=== PATIENT | female | born 1980 | race Caucasian/White ===

== ENCOUNTER 2017-12-03 09:57 | Inpatient (IN) ==
[2017-12-03] MEDS ORDERED: Famotidine 20 MG/2 ML VIAL IVP ONE (10:26)
[2017-12-03] MEDS ORDERED: Metoclopramide 10 MG/2 ML VIAL IVP ONE (10:26)
[2017-12-03] MEDS ORDERED: CeFAZolin Premix DUPLEX 2,000 MG/50 ML BAG IVPB ONE (10:26)
[2017-12-03] MEDS ORDERED: Oxytocin 20 units/ LR 1000 mL 20 UNIT/1,000 ML BAG IVC ONE ×2 (10:26→15:31)
[2017-12-03] MEDS ORDERED: Ringers Solution, Lactated 1,000 ML IVC SCH (10:30)
--- NOTE | 2017-12-03 10:43 | Anesthesia Evaluation PreOp ---
Date of Encounter: 12/03/17 Time of Encounter: 10:38 - Past History Planned Operation: csection Cardiac History: Denies any Significant Hx Pulmonary History: Snore RISK AND INSURANCE CONSULTANT History: Denies Any Significant HX Other Medical History: GERD Anesthesia History: No Prior Anesthetic Complications, Past Anesthesia (wrist fracture) : Yes (, 38 weeks. 20 week ultrasound-placenta previa) Alcohol Use: occasionally Drug use: none Medications and Allergies Hydrocodone/Acetaminophen [[place] 5-325 Tablet] 1 each PO 3-4XD PRN #8 tablet [Rx] Naproxen [Naprosyn] 500 mg PO BID PRN #30 tablet 01/25/16 [Rx] 3 Allergy/AdvReac Type Severity Reaction Status Date / Time No Known Allergies Allergy Verified 01/25/16 19:59 - Meds/Allergy Pre-op Review Medications Reviewed: Yes Allergies Reviewed: Yes Beta Blockers on Current Med List: No Anesthesia Exam O2 Sat Height 1.57 m Weight 99 kg bp 128/72 rr 82 [id number] Height: 62 Weight: 99 NPO (# of Hours): greater than 8 hours - HEENT Pupil (Motor): Pupils equal Mallampati: II Teeth: Normal Oral Opening: Greater than 3 - RISK AND INSURANCE CONSULTANT LOC: Oriented RISK AND INSURANCE CONSULTANT Motor: Normal RUE, Normal LUE, Normal RLE, Normal LLE, Normal Face RISK AND INSURANCE CONSULTANT Sensory: Normal: RUE - Cardiac Rhythm: Regular Murmur: None JVD: No Carotid Bruit: No - Pulmonary Breath Sounds: bilateral Clear Respiratory Effort: Symmetrical Anesthesia Assess/Plan ASA Score: 2 Modified Stanton Scale for Level of Consciousness: Cooperative, oriented, and tranquil Anesthetic Plan: Regional Monitoring Plan: Standard Monitors Recovery Plan: PACU
[2017-12-03] MEDS ORDERED: Morphine Sulfate/PF 5mg/10mL Vial ONE (11:11)
[2017-12-03] MEDS ORDERED: *HR* Phenylephrine 10 MG/ML VIAL ONE (11:11)
[2017-12-03] MEDS ORDERED: *HR* Oxytocin 10 UNIT/ML VIAL IM ONE (11:14)
[2017-12-03 11:23] LABS: Basophils % 0.2 %; Eosinophils % 0.2 %; Hematocrit 34.6 % (35.3-44.9); Hemoglobin 11.3 g/dL (11.5-15.4); Immature Granulocytes % 0.2 % (0-4); Lymphocytes # 1.7 K/mcL (0.6-4.6); Lymphocytes % 20.1 %; Mean Corpuscular HGB Conc 32.7 g/dL (31.6-35.5); Mean Corpuscular Hemoglobin 28.5 pg (28.0-33.3); Mean Corpuscular Volume 87.2 fL (83.0-100.0); Mean Platelet Volume 13.3 fL (9.4-12.4); Monocytes # 0.6 K/mcL (0.0-1.3); Monocytes % 6.9 %; Neutrophils # 6.3 K/mcL (1.6-8.9); Platelet Count 176 K/mcL (140-400); Red Blood Count 3.97 M/mcL (3.82-4.97); Red Cell Distribution Width 14.1 % (11.5-14.5); Segmented Neutrophils % 72.4 %
[2017-12-03 11:50] LABS: Amphetamine Screen,Urine Negative ng/mL (Cutoff=1000); Barbiturate Screen,Urine Negative ng/mL (Cutoff=200); Benzodiazepines Screen,Urine Negative ng/mL (Cutoff=200); Cannabinoid Screen,Urine Negative ng/mL (Cutoff = 50); Cocaine Screen,Urine Negative ng/mL (Cutoff= 300); Opiate Screen,Urine Negative ng/mL (Cutoff=300); Phencyclidine Screen,Urine Negative ng/mL (Cutoff=25)
--- NOTE | 2017-12-03 11:59 | OB/GYN History & Physical ---
Date of Encounter: 12/03/17 Time of Encounter: 11:51 Assessment and Plan (1) 38 weeks gestation of Current visit: Yes Status: Acute (2) Placenta previa antepartum in third trimester Current visit: Yes Status: Acute Admit to L&D for PLTCS Labs - CBC Dr. Jim to perform surgery (3) Polyhydramnios affecting in third trimester Current visit: Yes Status: Acute History of Present Illness Chief complaint: PLTCS HPI: Ms. Hanson is a 37 year old female with an estimated date of of 38 weeks 0 days gestation dated by early ultrasound. She presents for scheduled primary low transverse for placenta previa. She denies contractions, leakage of fluid, vaginal bleeding and reports positive movement. Her course has been complicated by placenta previa and polyhydramnios. She desires future fertility. Labs: A+ GBS- Quad screen negative HIV negative Hep B- RPR nonreactive Rubella nonimmune-Will need MMR Varicella immune GC/chlamydia negative Past Med Surg Social Fam HX - Past Medical History Medical history: no medical history Psychiatric history: no psych history - Past Surgical History Surgical History: no surgical history - Social History Smoking Status: Never smoker Smokeless Tobacco Status: No Alcohol use: occasionally Drug use: none - Family History Mother Hx Family Medical Disorders: Yes (hypertension) Obstetrical History - Pregnancies : 1 Para: 0 Term: 0 : 0 Ab's: 0 Livin Medications and Allergies Omeprazole 1 / PO DAILY 12/03/17 [History] Pnv Plus Multivit Tab 1 / PO DAILY 12/03/17 [History] 3 Allergy/AdvReac Type Severity Reaction Status Date / Time No Known Allergies Allergy Verified 01/25/16 19:59 Review of System OB All systems PM: reviewed and no additional remarkable complaints except as stated Exam - Constitutional Constitutional: well developed, well nourished, no acute distress, average body habitus - HEENT HEENT: Normocephaly, Mucus Membranes Moist - Neck Neck exam: full ROM - Lungs Respiratory exam: CTAB - Cardiovascular Cardiovascular exam: RRR, +S1, +S2 - Breasts Breast: bilateral: normal - Abdomen Abdomen: Present: bowel sounds normal - Extremities Extremities exam: full ROM, radial pulses palpable and symmetrical - Uterus Uterus exam: Present: normal size, normal contour Results Result Diagrams: 12/03/17 10:55 Abnormal lab results Hgb 11.3 g/dL (11.5-15.4) L 12/03/17 10:55 Hct 34.6 % (35.3-44.9) L 12/03/17 10:55 MPV 13.3 fL (9.4-12.4) H 12/03/17 10:55 All other labs normal.
[2017-12-03] MEDS ORDERED: *HR* OxyCODONE Immed Rel 5 MG TABLET PO PRN (12:40)
[2017-12-03] MEDS ORDERED: *HR* Promethazine 25 MG/ML VIAL IVP PRN (12:40)
[2017-12-03] MEDS ORDERED: Ketorolac 30 MG/ML VIAL IVP PRN (12:40)
[2017-12-03] MEDS ORDERED: Ondansetron 4 MG/2 ML VIAL IVP PRN ×2 (12:40→15:59)
[2017-12-03] MEDS ORDERED: *HR* Nalbuphine 20 MG/ML AMPUL IVP PRN (12:43)
--- NOTE | 2017-12-03 13:21 | OB/GYN Procedure Note ---
Section - Date of procedure: 12/03/17 Preop diagnosis: desires sterilization, other (low lying placenta) Post-op diagnosis: other (2 vessel cord) Procedure: primary low transverse, bilateral tubal ligation Surgeon: Fareed Jim Estimated blood loss (cc): 500 Was there an scheduling assistant present: Yes Application Software Developer: Katheryn Catherine Rackman: Matt Alejandro Anesthesia Type: Spinal section complications: none Disposition: L&D Recovery Room Specimens: Placenta, Right tube segment, Left tube segment - Infant (s) Infant A Infant Delivery Date: 12/03/17 Delivery Time: 12:31 Presentation: vertex Position: TERRY Route of delivery: other Gender: Female Viability: Viable Pounds: 7 Ounces: 0 Gram Weight: 3185 kg at 1 minute: 8 at 5 minutes: 9 Shoulder Dystocia: not encountered Placenta: complete extraction Cord: 2 umbilical vessels - Narrative Narrative: Patient was taken to the operating room and placed in supine position with left uterine displacement following the administration of spinal anesthetic. Skin was then prepped and draped in usual sterile fashion, and a timeout procedure was performed. A Pfannenstiel incision was performed and extended down to the fascial layer until the abdominal cavity was entered. A low transverse uterine incision was performed and extended bilaterally with bandage scissors. The membranes were then ruptured with clear fluid present. A viable female was delivered from a vertex presentation with scores of 8 and 9 at 1 and 5 minutes respectively and the infant weighed 7 pounds and 0 ounces. The cord was clamped and cut, and the was handed to the nursery team. A sample of cord blood was obtained and the placenta was manually removed. The uterine cavity was wiped clean with wet lap sponge. The uterine incision was closed in a layered fashion with 0 Vicryl suture in a running locking fashion. Good hemostasis was noted.The patient and her were then asked if they still wanted to proceed with a tubal sterilization and they agreed. The left fallopian tube was first identified grasped and traced distally until the fimbriated end was seen and a distal portion tube was doubly ligated with 0 plain suture to incorporate the fimbriated end and the specimen was removed. Good hemostasis was noted and the procedure was repeated in a similar fashion for the right fallopian tube. Again good hemostasis was present. The Paracolic gutters were then gently wiped clean with wet lap sponge. Inspection was then performed with good hemostasis still noted. The fascial layer was closed with 0 PDS Stratafix suture in a running nonlocking fashion. The subcutaneous layer was irrigated with sterile water and then closed with 4-0 Vicryl suture in a running nonlocking fashion, and continuing to close the skin in a running subcuticular fashion. A piece of Dermabond mesh was then applied over the incision site. Patient tolerated procedure well, all sponge needle and instrument counts reported as correct. Estimated blood loss was 500 mL. The urine in the Mike catheter was clear and yellow, and she was taken to recovery room in stable condition.
[2017-12-03] MEDS ORDERED: Measles/Mumps/Rubella Vacc 0.5 ML VIAL SQ ONE (15:59)
[2017-12-03] MEDS ORDERED: Metoclopramide 10 MG/2 ML VIAL IVP PRN (15:59)
[2017-12-03] MEDS ORDERED: Simethicone 80 MG TAB.CHEW PO PRN (15:59)
[2017-12-03] MEDS: *HR* OxyCODONE/APAP 5/325 TABLET PO PRN ×2 (16:20→22:19)
[2017-12-03] MEDS: Oxytocin 20 units/ LR 1000 mL 20 UNIT/1,000 ML BAG IVC SCH (22:38)
[2017-12-04] MEDS: Ibuprofen 600 MG TABLET PO PRN ×3 (04:20→20:50)
[2017-12-04] MEDS: *HR* OxyCODONE/APAP 5/325 TABLET PO PRN ×4 (04:20→20:50)
[2017-12-04 04:38] LABS: Basophils % 0.2 %; Eosinophils # 0.1 K/mcL (0.0-0.6); Eosinophils % 0.6 %; Hematocrit 32.9 % (35.3-44.9); Hemoglobin 10.6 g/dL (11.5-15.4); Immature Granulocytes % 0.6 % (0-4); Lymphocytes # 2.4 K/mcL (0.6-4.6); Lymphocytes % 22.7 %; Mean Corpuscular HGB Conc 32.2 g/dL (31.6-35.5); Mean Corpuscular Hemoglobin 28.1 pg (28.0-33.3); Mean Corpuscular Volume 87.3 fL (83.0-100.0); Mean Platelet Volume 12.8 fL (9.4-12.4); Monocytes # 0.7 K/mcL (0.0-1.3); Monocytes % 6.8 %; Neutrophils # 7.3 K/mcL (1.6-8.9); Platelet Count 156 K/mcL (140-400); Red Blood Count 3.77 M/mcL (3.82-4.97); Red Cell Distribution Width 14.2 % (11.5-14.5); Segmented Neutrophils % 69.1 %
[2017-12-04] MEDS: Oxytocin 20 units/ LR 1000 mL 20 UNIT/1,000 ML BAG IVC SCH (06:14)
[2017-12-04] MEDS: Prenatal Vit/FA 1 EACH TABLET PO SCH (07:48)
--- NOTE | 2017-12-04 09:03 | OB/GYN Progress Note ---
Date of Encounter: 12/04/17 Time of Encounter: 09:00 - Assessment and Plan (1) S/P primary low transverse Current Visit: Yes Status: Acute Patient is doing well status post primary C/S day# 1 Pain is well-controlled Patient is tolerating regular diet Denies flatus or bowel movement Voiding without difficulty Lochia light breast-feeding without difficulty Plan for discharged tomorrow (2) S/P tubal ligation Current Visit: Yes Status: Acute Subjective - Subjective Principal diagnosis: 2/2 placenta previa and polyhydramnios Patient reports: appetite normal, voiding normally, pain well controlled, ambulating normally : doing well Objective - Vital Signs Latest vital signs: Vital Signs Temp Pulse Resp BP Pulse Ox 12/04/17 07:30 98.1 F 83 16 104/63 12/04/17 03:47 98.1 F 88 16 98/63 97 12/04/17 00:00 98.7 F 91 16 98/63 95 12/03/17 20:15 98.4 F 85 16 100/66 95 12/03/17 17:30 97.7 F 82 16 111/52 96 12/03/17 16:44 97.5 F L 82 16 107/70 12/03/17 16:11 98.8 F 73 16 124/83 12/03/17 16:00 97.7 F 87 16 113/71 Intake and Output 12/03/17 12/04/17 12/04/17 23:59 07:59 15:59 Intake Total 360 / 360 1500 / 1500 Output Total 700 / 700 Balance 360 / 360 800 / 800 Intake: IV Fluids 1000 / 1000 Pitocin 20 unit In 1,000 ml @ 1000 / 1000 125 mls/hr IVC .Q8H [facility] Rx#: [id number] Oral 360 / 360 500 / 500 Output: Urine 600 / 600 Catheter 100 / 100 Urethral (Mike) 100 / 100 Other: Meal Dinner Weight 98.8 kg 101.3 kg Patient Weight 12/04/17 23:59 Weight 101.3 kg - Exam Lungs: bilateral: normal Chest: Normal S1, Normal S2 Extremities: Present: normal Abdomen: Present: normal appearance, soft, gravid Incision: Present: normal, dry Uterus: Present: normal, firm Comments: I examined this patient and my medical decision-making was reviewed with the Resident Physician. I agree with the documented findings, disposition and treatment plan as described except to the extent set forth below. EJ Hebert - Labs Labs: Laboratory Results - last 24 hr 12/03/17 12/03/17 12/04/17 10:55 10:55 04:20 WBC 8.7 10.5 RBC 3.97 3.77 L Hgb 11.3 L 10.6 L Hct 34.6 L 32.9 L MCV 87.2 87.3 MCH 28.5 28.1 MCHC 32.7 32.2 RDW 14.1 14.2 Plt Count 176 156 MPV 13.3 H 12.8 H Immature Gran % 0.2 0.6 Seg Neutrophils % 72.4 69.1 Lymphocytes % 20.1 22.7 Monocytes % 6.9 6.8 Eosinophils % 0.2 0.6 Basophils % 0.2 0.2 Neutrophils # 6.3 7.3 Lymphocytes # 1.7 2.4 Monocytes # 0.6 0.7 Eosinophils # 0.0 0.1 Basophils # 0.0 0.0 Urine Opiates Screen Negative Ur Barbiturates Screen Negative Ur Phencyclidine Scrn Negative Ur Amphetamines Screen Negative U Benzodiazepines Scrn Negative Urine Cocaine Screen Negative U Marijuana (THC) Screen Negative
[2017-12-05] MEDS: *HR* OxyCODONE/APAP 5/325 TABLET PO PRN ×2 (01:23→07:03)
[2017-12-05] MEDS: Ibuprofen 600 MG TABLET PO PRN ×2 (03:54→09:51)
[2017-12-05 08:14] VITALS: BP 120/80
--- NOTE | 2017-12-05 09:03 | Discharge Summary ---
Date of Encounter: 12/05/17 Time of Encounter: 09:00 - Discharge Diagnosis (1) S/P primary low transverse Priority: Primary Status: Acute (2) S/P tubal ligation Priority: Primary Status: Acute - Discharge Medications Home Medications: Omeprazole 1 / PO DAILY 12/03/17 [History] Pnv Plus Multivit Tab 1 / PO DAILY 12/03/17 [History] Allergies/Adverse Reactions: 3 Allergy/AdvReac Type Severity Reaction Status Date / Time No Known Allergies Allergy Verified 01/25/16 19:59 Data Procedures and tests throughout hospitalization: Laboratory Tests 12/03/17 12/03/17 12/04/17 10:55 10:55 04:20 WBC 8.7 10.5 RBC 3.97 3.77 L Hgb 11.3 L 10.6 L Hct 34.6 L 32.9 L MCV 87.2 87.3 MCH 28.5 28.1 MCHC 32.7 32.2 RDW 14.1 14.2 Plt Count 176 156 MPV 13.3 H 12.8 H Immature Gran % 0.2 0.6 Seg Neutrophils % 72.4 69.1 Lymphocytes % 20.1 22.7 Monocytes % 6.9 6.8 Eosinophils % 0.2 0.6 Basophils % 0.2 0.2 Neutrophils # 6.3 7.3 Lymphocytes # 1.7 2.4 Monocytes # 0.6 0.7 Eosinophils # 0.0 0.1 Basophils # 0.0 0.0 Urine Opiates Screen Negative Ur Barbiturates Screen Negative Ur Phencyclidine Scrn Negative Ur Amphetamines Screen Negative U Benzodiazepines Scrn Negative Urine Cocaine Screen Negative U Marijuana (THC) Screen Negative Date of admission: 12/03/17 09:57 Primary care physician: PCP NONE Discharging clinician: Pascual Hutchison Anticipated date of discharge: 12/05/17 - Patient Status Disposition: Home, Self-Care Condition: Good Functional capacity at discharge: independent ambulation Overall status at discharge: patient is progressing back to baseline - Discharge Instructions Follow Up With: NONE,PCP [Primary Care Provider] - - Diet and Activity Activity: resume usual activities as tolerated Diet: advance to your usual diet 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 Hanson is a 37F who presented for scheduled primary low transverse C- section for placenta previa. Her course had been complicated by placenta previa and polyhydramnios. She desires future fertility. Patient reports that her pain is well-controlled, lochia is light, tolerating regular diet and passing flatus and urine without difficulty, breast-feeding without difficulty. She reports that she is recovering well. Denies any headaches, vision changes, chest pain, turns red, abdominal pain, dysuria. Patient reports that she is ready go home today. Time Attestation: Total time spent providing and/or coordinating discharge services: Time Spent: Greater than 30 minutes Exam - Constitutional Vitals: Temp Pulse Resp BP Pulse Ox 98.2 F 85 20 120/80 96 12/05/17 08:12 12/05/17 08:12 12/05/17 08:12 12/05/17 08:12 12/05/17 08:12 General appearance IM: A&O X 3, no acute distress - Respiratory Respiratory exam: Absent: respiratory distress - Cardiovascular Cardiovascular exam IM: Absent: irregular rhythm - GI/Abdominal GI/Abdominal exam IM: normal bowel sounds Incision: normal, dry, intact - Rectal Rectal exam: deferred - Uterine Tone: Firm - Extremities Exam Extremities exam IM: Absent: calf tenderness - VTE Documentation of Mechanical Device: Intermittent pneumatic compression device
--- NOTE | 2017-12-05 09:16 | Discharge Summary ---
Date of Encounter: 12/05/17 Time of Encounter: 09:15 - Discharge Diagnosis (1) S/P primary low transverse Priority: Primary Status: Acute (2) S/P tubal ligation Priority: Primary Status: Acute (3) Placenta previa antepartum in third trimester Priority: Secondary Status: Acute (4) Polyhydramnios affecting in third trimester Priority: Secondary Status: Acute - Discharge Medications Prescriptions: Ibuprofen [Motrin] 600 mg PO Q6HR PRN #30 tab PRN Reason: Mild Pain OxyCODONE/APAP 5/325 [Percocet 5/325 MG] 1 each PO Q6HR PRN 5 Days #15 tablet PRN Reason: Moderate pain 4-6 Docusate [Colace] 100 mg PO BID #30 capsule Ferrous Sulfate 325 mg PO DAILY #30 tablet Home Medications: Omeprazole 1 / PO DAILY 12/03/17 [History] Pnv Plus Multivit Tab 1 / PO DAILY 12/03/17 [History] Docusate [Colace] 100 mg PO BID #30 capsule 12/05/17 [Rx] Ferrous Sulfate 325 mg PO DAILY #30 tablet 12/05/17 [Rx] Ibuprofen [Motrin] 600 mg PO Q6HR PRN #30 tab 12/05/17 [Rx] OxyCODONE/APAP 5/325 [Percocet 5/325 MG] 1 each PO Q6HR PRN 5 Days #15 tablet [Rx] Allergies/Adverse Reactions: 3 Allergy/AdvReac Type Severity Reaction Status Date / Time No Known Allergies Allergy Verified 01/25/16 19:59 Data Procedures and tests throughout hospitalization: Laboratory Tests 12/03/17 12/03/17 12/04/17 10:55 10:55 04:20 WBC 8.7 10.5 RBC 3.97 3.77 L Hgb 11.3 L 10.6 L Hct 34.6 L 32.9 L MCV 87.2 87.3 MCH 28.5 28.1 MCHC 32.7 32.2 RDW 14.1 14.2 Plt Count 176 156 MPV 13.3 H 12.8 H Immature Gran % 0.2 0.6 Seg Neutrophils % 72.4 69.1 Lymphocytes % 20.1 22.7 Monocytes % 6.9 6.8 Eosinophils % 0.2 0.6 Basophils % 0.2 0.2 Neutrophils # 6.3 7.3 Lymphocytes # 1.7 2.4 Monocytes # 0.6 0.7 Eosinophils # 0.0 0.1 Basophils # 0.0 0.0 Urine Opiates Screen Negative Ur Barbiturates Screen Negative Ur Phencyclidine Scrn Negative Ur Amphetamines Screen Negative U Benzodiazepines Scrn Negative Urine Cocaine Screen Negative U Marijuana (THC) Screen Negative Date of admission: 12/03/17 09:57 Primary care physician: PCP NONE Discharging clinician: Pascual Hutchison Anticipated date of discharge: 12/05/17 - Patient Status Disposition: Home, Self-Care Condition: Good Overall status at discharge: patient is back to baseline - Discharge Instructions Follow Up With: NONE,PCP [Primary Care Provider] - - Diet and Activity Activity: resume usual activities as tolerated Diet: advance to your usual diet Hospital Course Procedures: primary low transverse Reason for admission: section Delivery: section Episiotomy: none Laceration: none complications: none Discharge diagnosis: IUP at term delivered [place] baby: female Hospital course: Section - Date of procedure: 12/03/17 Preop diagnosis: desires sterilization, other (low lying placenta) Post-op diagnosis: other (2 vessel cord) Procedure: primary low transverse, bilateral tubal ligation Surgeon: Fareed Jim Estimated blood loss (cc): 500 Was there an certified ophthalmic assistant present: Yes Warehouse Sorter: Katheryn Catherine Manager Statistical Programming: Matt Alejandro Anesthesia Type: Spinal section complications: none Disposition: L&D Recovery Room Specimens: Placenta, Right tube segment, Left tube segment - Infant (s) A Delivery Date: 12/03/17 Infant Delivery Time: 12:31 Presentation: vertex Position: TERRY Route of delivery: other Gender: Female Viability: Viable Pounds: 7 Ounces: 0 Gram Weight: 3185 kg at 1 minute: 8 at 5 minutes: 9 Shoulder Dystocia: not encountered Placenta: complete extraction Cord: 2 umbilical vessels Stable in post- and appropriate for discharge. OARRS reviewed. Time Attestation: Total time spent providing and/or coordinating discharge services: Time Spent: Greater than 30 minutes - VTE Documentation of Mechanical Device: Intermittent pneumatic compression device Exam - Constitutional Vitals: Temp Pulse Resp BP Pulse Ox 98.2 F 85 16 120/80 96 03/10/18 08:12 12/05/17 08:12 12/05/17 08:57 12/05/17 08:12 12/05/17 08:12 General appearance IM: A&O X 3, no acute distress - Respiratory Respiratory exam: Present: CTAB. Absent: respiratory distress - Cardiovascular Cardiovascular exam IM: Present: RRR, +S1, +S2. Absent: irregular rhythm - GI/Abdominal GI/Abdominal exam IM: normal bowel sounds Incision: normal, dry, intact - Rectal Rectal exam: deferred - Uterine Tone: Firm Uterus Position: At Umbilicus - Extremities Exam Extremities exam IM: Present: full ROM. Absent: calf tenderness - Neurological Exam Neurological exam: CN II-XII intact, oriented X3, reflexes normal - Psychiatric Additional comments: Mood is good
[2017-12-05] MEDS: Prenatal Vit/FA 1 EACH TABLET PO SCH (09:51)
== END 2017-12-05 11:45 | disposition home or self-care (01) | DRG 765 ==
LOC: 1NENULAB 09:57 → 1NENUOBS 15:52